=== PATIENT | female | born 1940 | race Native Hawaiian/Other Pacific Islander ===

== ENCOUNTER 2016-09-21 09:28 | Inpatient (IN) | payer OTHER ==
[~2016-09-21 09:28] MED LIST: ALEN70TA19 PO; AMBIEN5 MG PO; AMIT10TA21 PO; ARTIFI TEARS OP; AZEL137S NAS; BIOTIN1000 MCG PO; BUT/APAP/CA1 PO; CALCIUM + D600 MG PO; CHOLESTYRAM4 G1 PO; CYAN10009 IM; D3400 UNI2 PO; DEXTLIQ63 PO; DONE5TAB PO; DULO60CA2 PO; FERROUS SULF325 MG PO; HYDR5TAB9 PO; INSU100I2 SC; LEVO0.0723 PO; LISI10TA11 PO; LYRICA75 MG PO; METO25TA4 PO; MULTTAB52 PO; NEXIUM40 M1 PO; OXYB5TAB56 PO; PLAVIX75 MG PO; RESTASIS0.05 % OP; SIMV40TA57 PO; SINGULAIR10 MG PO; TYLENOL325 MG PO; VITAMIN D400 UNI1 PO; ZANTAC300 MG PO
== END 2016-10-22 08:00 | disposition still patient (30) ==
LOC: PAVB 09:28
PROVIDERS: ADMIT Internal Medicine
DX: Z51.89 Encounter for other specified aftercare (principal)

== ENCOUNTER 2016-10-22 09:00 | Inpatient (IN) | payer OTHER | END 2016-11-22 10:16 | disposition still patient (30) | LOC: PAVB 09:00 | PROVIDERS: ADMIT Internal Medicine | DX: Z51.89 Encounter for other specified aftercare (principal) ==

== ENCOUNTER 2016-10-23 15:07 | Outpatient (CLI) | payer OTHER | END 2016-10-23 19:22 | disposition home or self-care (01) | LOC: RAD 15:07 | DX: R05 Cough (principal) ==

== ENCOUNTER 2016-11-22 10:39 | Inpatient (IN) | payer OTHER | END 2016-12-20 09:45 | disposition still patient (30) | LOC: PAVB 10:39 | PROVIDERS: ADMIT Internal Medicine | DX: Z51.89 Encounter for other specified aftercare (principal) ==

== ENCOUNTER 2016-11-27 04:35 | Outpatient (CLI) | payer OTHER ==
[2016-11-27 06:19] LABS: PLATELET COUNT 287 K/uL (152-353)
[2016-11-27 06:36] LABS: POTASSIUM 3.9 mmol/L (3.6-5.2)
== END 2016-11-27 20:02 | disposition home or self-care (01) ==
LOC: LAB 04:35
PROVIDERS: Internal Medicine
DX: I10 Essential (primary) hypertension (principal); E03.8 Other specified hypothyroidism; E56.8 Deficiency of other vitamins; R73.09 Other abnormal glucose; M81.8 Other osteoporosis without current pathological fracture
CPT/HCPCS: 36415; 80053; 80061; 82306; 82607; 83036; 84443; 85027

== ENCOUNTER 2016-12-20 10:28 | Inpatient (IN) | payer OTHER | END 2017-01-20 08:07 | disposition still patient (30) | LOC: PAVB 10:28 | PROVIDERS: ADMIT Internal Medicine | DX: Z51.89 Encounter for other specified aftercare (principal) ==

== ENCOUNTER 2017-01-20 09:25 | Inpatient (IN) | payer OTHER | END 2017-02-19 09:09 | disposition still patient (30) | LOC: PAVB 09:25 | PROVIDERS: ADMIT Internal Medicine | DX: Z51.89 Encounter for other specified aftercare (principal) ==

== ENCOUNTER 2017-02-07 05:01 | Outpatient (CLI) | payer OTHER | END 2017-02-07 19:02 | disposition home or self-care (01) | LOC: LAB 05:01 | DX: Z16.24 Resistance to multiple antibiotics (principal) | CPT/HCPCS: 87081 ==

== ENCOUNTER 2017-02-19 09:58 | Inpatient (IN) | payer OTHER | END 2017-03-22 09:34 | disposition still patient (30) | LOC: PAVB 09:58 | PROVIDERS: ADMIT Internal Medicine | DX: Z51.89 Encounter for other specified aftercare (principal) ==

== ENCOUNTER 2017-02-21 10:33 | Outpatient (CLI) | payer OTHER | END 2017-02-21 19:13 | disposition home or self-care (01) | LOC: LAB 10:33 | DX: E11.9 Type 2 diabetes mellitus without complications (principal) | CPT/HCPCS: 83036 ==

== ENCOUNTER 2017-03-19 15:47 | Outpatient (CLI) | payer OTHER | END 2017-03-19 19:30 | disposition home or self-care (01) | LOC: RAD 15:47 | DX: R05 Cough (principal); R06.2 Wheezing ==

== ENCOUNTER 2017-03-20 18:40 | Emergency (ER) | payer OTHER ==
[~2017-03-20] VITALS: Ht 152.4 cm; Wt 54.0 kg
[2017-03-20 19:08] LABS: PLATELET COUNT 354 K/uL (152-353)
[2017-03-20 19:17] LABS: POTASSIUM 4.3 mmol/L (3.6-5.2)
[2017-03-20 21:00] VITALS: BP 121/67; TEMP 98.5
== END 2017-03-20 21:05 | disposition home or self-care (01) ==
LOC: ED 18:40
PROC: 0T9B70Z Drainage of Bladder with Drainage Device, Via Natural or Artificial Opening (ICD-10-PCS; principal; 2017-03-20)
DX: T50.991A Poisoning by other drugs, medicaments and biological substances, accidental (unintentional), initial encounter (principal); R53.83 Other fatigue; X58.XXXA Exposure to other specified factors, initial encounter; Y92.128 Other place in nursing home as the place of occurrence of the external cause
CPT/HCPCS: 36415; 51702; 80053; 80307; 81000; 85027; 96360; 96361; 99284; G0479

== ENCOUNTER 2017-03-22 09:58 | Inpatient (IN) | payer OTHER | END 2017-04-21 15:22 | disposition still patient (30) | LOC: PAVB 09:58 | PROVIDERS: ADMIT Internal Medicine | DX: Z51.89 Encounter for other specified aftercare (principal) ==

== ENCOUNTER 2017-03-28 05:06 | Outpatient (CLI) | payer OTHER | END 2017-03-28 06:10 | disposition home or self-care (01) | LOC: LAB 05:06 | DX: Z02.83 Encounter for blood-alcohol and blood-drug test (principal) | CPT/HCPCS: 80307; G0479 ==

== ENCOUNTER 2017-04-21 15:39 | Inpatient (IN) | payer OTHER | END 2017-05-22 09:43 | disposition still patient (30) | LOC: PAVB 15:39 | PROVIDERS: ADMIT Internal Medicine | DX: Z51.89 Encounter for other specified aftercare (principal) ==

== ENCOUNTER 2017-05-10 07:15 | Day surgery (SDC) | payer OTHER | END 2017-05-10 09:35 | LOC: OR 07:15 | PROC: 0DB68ZZ Excision of Stomach, Via Natural or Artificial Opening Endoscopic (ICD-10-PCS; principal; 2017-05-10) | PROC: 0D738ZZ Dilation of Lower Esophagus, Via Natural or Artificial Opening Endoscopic (ICD-10-PCS; 2017-05-10) | DX: K22.2 Esophageal obstruction (principal); R13.19 Other dysphagia; K44.9 Diaphragmatic hernia without obstruction or gangrene; K20.8 Other esophagitis | CPT/HCPCS: J3010 ==

== ENCOUNTER 2017-05-22 10:33 | Inpatient (IN) | payer OTHER | END 2017-06-22 08:41 | disposition still patient (30) | LOC: PAVB 10:33 | PROVIDERS: ADMIT Internal Medicine | DX: Z51.89 Encounter for other specified aftercare (principal) ==

== ENCOUNTER 2017-05-23 06:30 | Outpatient (CLI) | payer OTHER ==
[2017-05-23 07:01] LABS: PLATELET COUNT 304 K/uL (152-353)
[2017-05-23 07:23] LABS: POTASSIUM 4.5 mmol/L (3.6-5.2)
== END 2017-05-23 19:40 | disposition home or self-care (01) ==
LOC: LAB 06:30
PROVIDERS: Internal Medicine
DX: I10 Essential (primary) hypertension (principal); E03.8 Other specified hypothyroidism; D51.8 Other vitamin B12 deficiency anemias; E55.9 Vitamin D deficiency, unspecified; R73.9 Hyperglycemia, unspecified; R73.09 Other abnormal glucose
CPT/HCPCS: 36415; 80053; 80061; 82306; 82607; 83036; 84443; 85027

== ENCOUNTER 2017-06-22 09:11 | Inpatient (IN) | payer OTHER | END 2017-07-22 10:39 | disposition still patient (30) | LOC: PAVB 09:11 | PROVIDERS: ADMIT Internal Medicine | DX: Z51.89 Encounter for other specified aftercare (principal) ==

== ENCOUNTER 2017-07-22 10:42 | Inpatient (IN) | payer OTHER | END 2017-08-22 12:56 | disposition still patient (30) | LOC: PAVB 10:42 | PROVIDERS: ADMIT Internal Medicine ==

== ENCOUNTER 2017-07-31 10:17 | Day surgery (SDC) | payer OTHER | END 2017-07-31 13:40 | LOC: OR 10:17 | PROC: 0DB38ZZ Excision of Lower Esophagus, Via Natural or Artificial Opening Endoscopic (ICD-10-PCS; principal; 2017-07-31) | PROC: 0D738ZZ Dilation of Lower Esophagus, Via Natural or Artificial Opening Endoscopic (ICD-10-PCS; 2017-07-31) | DX: R13.19 Other dysphagia (principal); K22.2 Esophageal obstruction; K44.9 Diaphragmatic hernia without obstruction or gangrene; K29.60 Other gastritis without bleeding | CPT/HCPCS: J2001; J2704; J3010 ==

== ENCOUNTER 2017-08-22 13:40 | Inpatient (IN) | payer OTHER | END 2017-09-21 09:20 | disposition still patient (30) | LOC: PAVB 13:40 | PROVIDERS: ADMIT Internal Medicine ==

== ENCOUNTER 2017-08-27 07:58 | Outpatient (CLI) | payer OTHER | END 2017-08-27 09:00 | disposition home or self-care (01) | LOC: LAB 07:58 | DX: E11.9 Type 2 diabetes mellitus without complications (principal) | CPT/HCPCS: 36415; 83036 ==

== ENCOUNTER 2017-09-21 09:40 | Inpatient (IN) | payer OTHER | END 2017-10-22 09:30 | disposition still patient (30) | LOC: PAVB 09:40 | PROVIDERS: ADMIT Internal Medicine ==

== ENCOUNTER 2017-10-22 10:01 | Inpatient (IN) | payer OTHER | END 2017-11-22 09:49 | disposition still patient (30) | LOC: PAVB 10:01 | PROVIDERS: ADMIT Internal Medicine ==

== ENCOUNTER 2017-11-22 10:36 | Inpatient (IN) | payer OTHER | END 2017-12-20 09:19 | disposition still patient (30) | LOC: PAVB 10:36 | PROVIDERS: ADMIT Internal Medicine | DX: R26.9 Unspecified abnormalities of gait and mobility (principal); N39.0 Urinary tract infection, site not specified; A04.72 Enterocolitis due to Clostridium difficile, not specified as recurrent; N15.9 Renal tubulo-interstitial disease, unspecified; Z91.81 History of falling; D50.9 Iron deficiency anemia, unspecified; N32.81 Overactive bladder; D51.1 Vitamin B12 deficiency anemia due to selective vitamin B12 malabsorption with proteinuria; J44.9 Chronic obstructive pulmonary disease, unspecified | CPT/HCPCS: 87324; 87449 ==

== ENCOUNTER 2017-11-27 05:37 | Outpatient (CLI) | payer OTHER ==
[2017-11-27 06:30] LABS: PLATELET COUNT 412 K/uL (152-353)
[2017-11-27 06:52] LABS: POTASSIUM 4.4 mmol/L (3.6-5.2)
[2017-11-28 19:00] VITALS: BP 85/56; TEMP 99
[2017-11-28 21:00] VITALS: BP 82/68
[2017-11-28 22:00] VITALS: BP 84/68
[2017-11-28 23:00] VITALS: BP 97/60
[2017-11-29] VITALS: BP 74/48; TEMP 99.9
[2017-11-29 01:00] VITALS: BP 89/73
[2017-11-29 02:00] VITALS: BP 93/67
[2017-11-29 04:00] VITALS: BP 73/56; TEMP 98.8
[2017-11-29 05:00] VITALS: BP 66/49
== END 2017-11-27 20:03 | disposition home or self-care (01) ==
LOC: LAB 05:37 → ICU 11-28 19:15 → MED/SURG 11-28 19:15 → ICU 11-28 19:15
PROVIDERS: Internal Medicine
DX: I10 Essential (primary) hypertension (principal); E03.8 Other specified hypothyroidism; D51.8 Other vitamin B12 deficiency anemias; J44.9 Chronic obstructive pulmonary disease, unspecified; R79.89 Other specified abnormal findings of blood chemistry; R19.5 Other fecal abnormalities
CPT/HCPCS: 80053; 80061; 82272; 82306; 82607; 83036; 84443; 85027; 87015; 87045; 87205; 87324; 87328; 87329; 87449; 87899; 94760

== ENCOUNTER 2017-11-27 20:47 | Inpatient (IN) | payer OTHER ==
[~2017-11-27] VITALS: Ht 157.5 cm; Wt 55.8 kg
[2017-11-27 20:48] VITALS: BP 71/43; TEMP 97.7
[2017-11-27 21:20] LABS: PLATELET COUNT 366 K/uL (152-353)
[2017-11-27 21:33] LABS: POTASSIUM 4.5 mmol/L (3.6-5.2)
[2017-11-28 00:56] VITALS: BP 86/43; TEMP 98.3; Ht 157.5 cm; Wt 55.8 kg
[2017-11-28 04:00] VITALS: BP 98/52; TEMP 99.1
[2017-11-28 06:44] LABS: POTASSIUM 4.5 mmol/L (3.6-5.2)
[2017-11-28 08:00] VITALS: BP 87/45; TEMP 98.8
[2017-11-28 12:00] VITALS: BP 80/51; TEMP 97.9
[2017-11-28 16:00] VITALS: BP 96/44; TEMP 100.4
[2017-11-29] VITALS (16 sets, daily range): BP systolic 60–98; BP diastolic 36–62; TEMP 98–98.8
[2017-11-29 11:14] LABS: PLATELET COUNT 299 K/uL (152-353)
[2017-11-29 11:26] LABS: POTASSIUM 4.7 mmol/L (3.6-5.2)
[2017-11-30] VITALS (22 sets, daily range): BP systolic 83–114; BP diastolic 43–66; TEMP 97.4–98.8
[2017-11-30 06:12] LABS: PLATELET COUNT 292 K/uL (152-353)
[2017-11-30 06:22] LABS: POTASSIUM 4.6 mmol/L (3.6-5.2)
[2017-12-01] VITALS (21 sets, daily range): BP systolic 99–139; BP diastolic 50–85; TEMP 97.4–98.5
[2017-12-01 06:34] LABS: PLATELET COUNT 329 K/uL (152-353)
[2017-12-01 06:47] LABS: POTASSIUM 4.8 mmol/L (3.6-5.2)
[2017-12-02] VITALS (17 sets, daily range): BP systolic 125–160; BP diastolic 60–86; TEMP 97.4–98.9
[2017-12-02 09:37] LABS: PLATELET COUNT 354 K/uL (152-353)
[2017-12-03] VITALS: BP 125/64; TEMP 98.5
[2017-12-03 04:00] VITALS: BP 144/74; TEMP 98.5
[2017-12-03 08:00] VITALS: BP 142/65; TEMP 97.5
[2017-12-03 12:00] VITALS: BP 165/78; TEMP 97.8
[2017-12-03 16:00] VITALS: BP 141/60; TEMP 97.8
[2017-12-03 20:00] VITALS: BP 157/76; TEMP 98.9
[2017-12-04] VITALS: BP 139/68; TEMP 98.5
[2017-12-04 04:00] VITALS: BP 144/68; TEMP 98
[2017-12-04 08:13] VITALS: BP 151/64; TEMP 98.1
[2017-12-04 12:00] VITALS: BP 129/70; TEMP 98.4
== END 2017-12-04 14:35 | DRG 871 ==
LOC: ED 20:47 → ICU 23:07 → MED/SURG 23:48 → ICU 11-28 19:15 → MED/SURG 11-28 23:49
PROVIDERS: Internal Medicine
DX: A41.89 Other specified sepsis (principal); J96.00 Acute respiratory failure, unspecified whether with hypoxia or hypercapnia; N39.0 Urinary tract infection, site not specified; A04.72 Enterocolitis due to Clostridium difficile, not specified as recurrent; I95.89 Other hypotension; R41.82 Altered mental status, unspecified; B96.20 Unspecified Escherichia coli [E. coli] as the cause of diseases classified elsewhere; G30.8 Other Alzheimer's disease; F02.80 Dementia in other diseases classified elsewhere, unspecified severity, without behavioral disturbance, psychotic disturbance, mood disturbance, and anxiety; J44.9 Chronic obstructive pulmonary disease, unspecified; E03.8 Other specified hypothyroidism; E11.9 Type 2 diabetes mellitus without complications; K21.9 Gastro-esophageal reflux disease without esophagitis; N32.81 Overactive bladder; I10 Essential (primary) hypertension; D51.8 Other vitamin B12 deficiency anemias; R79.89 Other specified abnormal findings of blood chemistry; R19.5 Other fecal abnormalities
CPT/HCPCS: 36415; 74022; 80048; 80053; 80061; 80202; 81000; 82272; 82306; 82607; 82947; 82948; 82962; 83036; 83605; 83880; 84443; 85027; 87015; 87040; 87045; 87077; 87086; 87088; 87185; 87186; 87205; 87324; 87328; 87329; 87449; 87899; 93005; 94640; 94664; 94760; 96361; 96365; 96366; 96367; 96372; 99285; J1650; J1885; J1940; J2270; J3411; J3490; J7060

== ENCOUNTER 2017-12-20 09:54 | Inpatient (IN) | payer OTHER | END 2018-01-20 08:00 | disposition still patient (30) | LOC: PAVB 09:54 | PROVIDERS: ADMIT Internal Medicine | DX: N39.0 Urinary tract infection, site not specified (principal); R26.9 Unspecified abnormalities of gait and mobility; N15.9 Renal tubulo-interstitial disease, unspecified; R53.1 Weakness; Z91.81 History of falling; D50.9 Iron deficiency anemia, unspecified; N32.81 Overactive bladder; D51.1 Vitamin B12 deficiency anemia due to selective vitamin B12 malabsorption with proteinuria; J44.9 Chronic obstructive pulmonary disease, unspecified; M81.0 Age-related osteoporosis without current pathological fracture | CPT/HCPCS: 36415; 84443 ==

== ENCOUNTER 2018-01-12 16:08 | Outpatient (CLI) | payer OTHER | END 2018-01-12 19:33 | disposition home or self-care (01) | LOC: RAD 16:08 | DX: M25.552 Pain in left hip (principal) ==

== ENCOUNTER 2018-01-20 09:00 | Inpatient (IN) | payer OTHER | END 2018-02-19 09:04 | disposition still patient (30) | LOC: PAVB 09:00 | PROVIDERS: ADMIT Internal Medicine ==

== ENCOUNTER 2018-02-19 09:31 | Inpatient (IN) | payer OTHER | END 2018-03-22 08:52 | disposition still patient (30) | LOC: PAVB 09:31 | PROVIDERS: ADMIT Internal Medicine ==

== ENCOUNTER 2018-02-20 10:32 | Outpatient (CLI) | payer OTHER ==
[2018-02-20 12:02] LABS: POTASSIUM 4.8 mmol/L (3.6-5.2)
== END 2018-02-20 21:39 | disposition home or self-care (01) ==
LOC: LAB 10:32
PROVIDERS: Internal Medicine
DX: E11.9 Type 2 diabetes mellitus without complications (principal); I10 Essential (primary) hypertension; E03.8 Other specified hypothyroidism
CPT/HCPCS: 80053; 83036; 84443

== ENCOUNTER 2018-03-06 17:55 | Outpatient (CLI) | payer OTHER | END 2018-03-06 20:00 | disposition home or self-care (01) | LOC: LAB 17:55 | DX: R30.0 Dysuria (principal); R35.8 Other polyuria | CPT/HCPCS: 81000; 87077; 87086; 87088; 87186 ==

== ENCOUNTER 2018-03-22 09:17 | Inpatient (IN) | payer OTHER | END 2018-04-21 14:19 | disposition still patient (30) | LOC: PAVB 09:17 | PROVIDERS: ADMIT Internal Medicine ==

== ENCOUNTER 2018-04-21 14:49 | Inpatient (IN) | payer OTHER | END 2018-05-22 08:00 | disposition still patient (30) | LOC: PAVB 14:49 | PROVIDERS: ADMIT Internal Medicine ==

== ENCOUNTER 2018-04-25 08:19 | Outpatient (CLI) | payer OTHER | END 2018-04-25 19:31 | disposition home or self-care (01) | LOC: LAB 08:19 | DX: E03.8 Other specified hypothyroidism (principal) | CPT/HCPCS: 84443 ==

== ENCOUNTER 2018-05-22 09:00 | Inpatient (IN) | payer OTHER | END 2018-06-22 10:18 | disposition still patient (30) | LOC: PAVB 09:00 | PROVIDERS: ADMIT Internal Medicine ==

== ENCOUNTER 2018-05-28 10:44 | Outpatient (CLI) | payer OTHER ==
[2018-05-28 11:03] LABS: PLATELET COUNT 273 K/uL (152-353)
[2018-05-28 11:33] LABS: POTASSIUM 5.4 mmol/L (3.6-5.2)
== END 2018-05-28 19:51 | disposition home or self-care (01) ==
LOC: LAB 10:44
PROVIDERS: Internal Medicine
DX: D72.829 Elevated white blood cell count, unspecified (principal); E11.9 Type 2 diabetes mellitus without complications; I10 Essential (primary) hypertension; Z79.899 Other long term (current) drug therapy; E55.9 Vitamin D deficiency, unspecified; E53.8 Deficiency of other specified B group vitamins
CPT/HCPCS: 36415; 80053; 81000; 82306; 82607; 83036; 84443; 85027; 87077; 87086; 87088; 87186

== ENCOUNTER 2018-06-05 05:24 | Outpatient (CLI) | payer OTHER | END 2018-06-05 23:59 | disposition home or self-care (01) | LOC: LAB 05:24 | DX: E11.9 Type 2 diabetes mellitus without complications (principal) | CPT/HCPCS: 82947 ==

== ENCOUNTER 2018-06-22 10:58 | Inpatient (IN) | payer OTHER | END 2018-07-22 09:20 | disposition still patient (30) | LOC: PAVB 10:58 | PROVIDERS: ADMIT Internal Medicine ==

== ENCOUNTER 2018-06-27 07:49 | Outpatient (CLI) | payer OTHER | END 2018-06-27 23:17 | disposition home or self-care (01) | LOC: LAB 07:49 | DX: E03.9 Hypothyroidism, unspecified (principal) | CPT/HCPCS: 36415; 84443 ==

== ENCOUNTER 2018-07-04 10:20 | Outpatient (CLI) | payer OTHER ==
[2018-07-04 10:56] LABS: PLATELET COUNT 339 K/uL (152-353)
[2018-07-04 10:59] LABS: POTASSIUM 5.2 mmol/L (3.6-5.2)
== END 2018-07-04 19:44 | disposition home or self-care (01) ==
LOC: LAB 10:20
PROVIDERS: Internal Medicine
DX: M62.830 Muscle spasm of back (principal); N18.9 Chronic kidney disease, unspecified; E87.5 Hyperkalemia; R82.99 Other abnormal findings in urine
CPT/HCPCS: 80048; 81000; 85027; 87077; 87086; 87088; 87186

== ENCOUNTER 2018-07-22 10:08 | Inpatient (IN) | payer OTHER | END 2018-08-22 08:47 | disposition still patient (30) | LOC: PAVB 10:08 | PROVIDERS: ADMIT Internal Medicine | CPT/HCPCS: J2001; J2704 ==

== ENCOUNTER 2018-08-06 07:24 | Day surgery (SDC) | payer OTHER ==
[2018-08-06 08:13] LABS: PLATELET COUNT 314 K/uL (152-353)
[2018-08-06 08:25] LABS: POTASSIUM 4.8 mmol/L (3.6-5.2)
== END 2018-08-06 09:55 ==
LOC: OR 07:24
PROVIDERS: Internal Medicine
PROC: 0DB68ZX Excision of Stomach, Via Natural or Artificial Opening Endoscopic, Diagnostic (ICD-10-PCS; principal; 2018-08-06)
PROC: 0D758ZZ Dilation of Esophagus, Via Natural or Artificial Opening Endoscopic (ICD-10-PCS; 2018-08-06)
PROC: 0DB58ZZ Excision of Esophagus, Via Natural or Artificial Opening Endoscopic (ICD-10-PCS; 2018-08-06)
DX: R13.19 Other dysphagia (principal); K22.2 Esophageal obstruction; K29.50 Unspecified chronic gastritis without bleeding; K20.8 Other esophagitis; K44.9 Diaphragmatic hernia without obstruction or gangrene; K22.10 Ulcer of esophagus without bleeding
CPT/HCPCS: 80053; 85027

== ENCOUNTER 2018-08-22 06:25 | Outpatient (CLI) | payer OTHER | END 2018-08-22 21:49 | disposition home or self-care (01) | LOC: LAB 06:25 | DX: E11.9 Type 2 diabetes mellitus without complications (principal) | CPT/HCPCS: 36415; 83036 ==

== ENCOUNTER 2018-08-22 09:48 | Inpatient (IN) | payer OTHER | END 2018-09-21 08:32 | disposition still patient (30) | LOC: PAVB 09:48 | PROVIDERS: ADMIT Internal Medicine ==

== ENCOUNTER 2018-09-06 03:41 | Outpatient (CLI) | payer OTHER | END 2018-09-06 19:11 | disposition home or self-care (01) | LOC: LAB 03:41 | DX: D50.8 Other iron deficiency anemias (principal) | CPT/HCPCS: 83540 ==

== ENCOUNTER 2018-09-06 15:38 | Outpatient (CLI) | payer OTHER | END 2018-09-06 19:20 | disposition home or self-care (01) | LOC: RAD 15:38 | DX: M85.88 Other specified disorders of bone density and structure, other site (principal) ==

== ENCOUNTER 2018-09-10 09:32 | Outpatient (CLI) | payer OTHER | END 2018-09-10 22:23 | disposition home or self-care (01) | LOC: RAD 09:32 | DX: R05 Cough (principal) ==

== ENCOUNTER 2018-09-21 09:13 | Inpatient (IN) | payer OTHER | END 2018-10-22 11:05 | disposition still patient (30) | LOC: PAVB 09:13 | PROVIDERS: ADMIT Internal Medicine ==

== ENCOUNTER 2018-10-22 11:22 | Inpatient (IN) | payer OTHER | END 2018-11-22 10:54 | disposition still patient (30) | LOC: PAVB 11:22 | PROVIDERS: ADMIT Internal Medicine ==

== ENCOUNTER 2018-11-05 13:33 | Outpatient (CLI) | payer OTHER | END 2018-11-05 23:33 | disposition home or self-care (01) | LOC: RAD 13:33 | DX: M25.512 Pain in left shoulder (principal) ==

== ENCOUNTER 2018-11-22 11:12 | Inpatient (IN) | payer OTHER | END 2018-12-20 10:18 | disposition still patient (30) | LOC: PAVB 11:12 | PROVIDERS: ADMIT Internal Medicine ==

== ENCOUNTER 2018-11-25 06:20 | Outpatient (CLI) | payer OTHER ==
[2018-11-25 07:57] LABS: PLATELET COUNT 280 K/uL (152-353)
[2018-11-25 08:33] LABS: POTASSIUM 4.7 mmol/L (3.6-5.2)
== END 2018-11-25 20:44 | disposition home or self-care (01) ==
LOC: LAB 06:20
PROVIDERS: Internal Medicine
DX: I10 Essential (primary) hypertension (principal); E11.9 Type 2 diabetes mellitus without complications
CPT/HCPCS: 36415; 80053; 80061; 82306; 82607; 83036; 84443; 85027

== ENCOUNTER 2018-11-28 16:32 | Outpatient (CLI) | payer OTHER | END 2018-11-28 22:41 | disposition home or self-care (01) | LOC: RAD 16:32 | DX: M54.5 Low back pain (principal) ==

== ENCOUNTER 2018-12-20 11:02 | Inpatient (IN) | payer OTHER | END 2019-01-20 10:39 | disposition still patient (30) | LOC: PAVB 11:02 | PROVIDERS: ADMIT Internal Medicine ==

== ENCOUNTER 2019-01-20 11:17 | Inpatient (IN) | payer OTHER | END 2019-02-19 11:16 | disposition still patient (30) | LOC: PAVB 11:17 | PROVIDERS: ADMIT Internal Medicine ==

== ENCOUNTER 2019-02-19 04:39 | Outpatient (CLI) | payer OTHER | END 2019-02-19 23:15 | disposition home or self-care (01) | LOC: LAB 04:39 | DX: E11.9 Type 2 diabetes mellitus without complications (principal) | CPT/HCPCS: 36415; 83036; 83540 ==

== ENCOUNTER 2019-02-19 12:20 | Inpatient (IN) | payer OTHER | END 2019-03-22 08:38 | disposition still patient (30) | LOC: PAVB 12:20 | PROVIDERS: ADMIT Internal Medicine | DX: Z51.89 Encounter for other specified aftercare (principal) ==

== ENCOUNTER 2019-02-27 09:14 | Day surgery (SDC) | payer OTHER ==
[~2019-02-27] VITALS: Ht 30.5 cm; Wt 0.5 kg
== END 2019-02-27 11:20 ==
LOC: OR 09:14
PROC: 0DB48ZZ Excision of Esophagogastric Junction, Via Natural or Artificial Opening Endoscopic (ICD-10-PCS; principal; 2019-02-27)
PROC: 0DB68ZZ Excision of Stomach, Via Natural or Artificial Opening Endoscopic (ICD-10-PCS; 2019-02-27)
PROC: 0D758ZZ Dilation of Esophagus, Via Natural or Artificial Opening Endoscopic (ICD-10-PCS; 2019-02-27)
DX: R13.19 Other dysphagia (principal); K22.2 Esophageal obstruction; K31.9 Disease of stomach and duodenum, unspecified; K22.9 Disease of esophagus, unspecified; K44.9 Diaphragmatic hernia without obstruction or gangrene; K20.8 Other esophagitis; K29.50 Unspecified chronic gastritis without bleeding; K25.3 Acute gastric ulcer without hemorrhage or perforation; D13.1 Benign neoplasm of stomach
CPT/HCPCS: J2001; J2405; J2704

== ENCOUNTER 2019-03-22 09:18 | Inpatient (IN) | payer OTHER ==
[2019-04-13] MEDS ORDERED: LISI20TA11 PO (15:38)
[2019-04-13] MEDS ORDERED: LYRICA150 MG PO (15:42)
[2019-04-13] MEDS ORDERED: LORADAMED10 MG PO (15:42)
[2019-04-13] MEDS ORDERED: MECLIZINE 2525 MG PO (15:43)
[2019-04-13] MEDS ORDERED: MELATONIN10 M2 PO (15:44)
[2019-04-13] MEDS ORDERED: REMERON SOLTAB15 MG PO (15:45)
[2019-04-13] MEDS ORDERED: CLOP75TA2 PO (15:48)
[2019-04-13] MEDS ORDERED: DULO60CA2 PO (15:51)
[2019-04-13] MEDS ORDERED: LANTUS100 UNIT/M SC (15:52)
[2019-04-13] MEDS ORDERED: EUTHYROX100 MCG PO (15:54)
[2019-04-13] MEDS ORDERED: OMEP40CA PO (15:54)
[2019-04-13] MEDS ORDERED: TOPAMAX50 MG PO (15:55)
[2019-04-13] MEDS ORDERED: VITAMIN D2000 UNI3 PO (15:56)
[2019-04-13] MEDS ORDERED: TRAMADOL HYDROC50 MG PO (15:57)
[2019-04-13] MEDS ORDERED: MECLIZINE25 MG PO (15:58)
[2019-04-13] MEDS ORDERED: CLON0.1T16 PO (15:59)
[2019-04-30] MEDS ORDERED: OXYB5TAB56 PO (15:28)
== END 2019-04-21 09:37 | disposition still patient (30) ==
LOC: PAVB 09:18
PROVIDERS: ADMIT Internal Medicine

== ENCOUNTER 2019-03-28 08:26 | Outpatient (CLI) | payer OTHER | END 2019-03-28 21:35 | disposition home or self-care (01) | LOC: LAB 08:26 | DX: R53.83 Other fatigue (principal) | CPT/HCPCS: 81000; 87077; 87086; 87088; 87186 ==

== ENCOUNTER 2019-04-10 07:26 | Outpatient (CLI) | payer OTHER | END 2019-04-10 23:04 | disposition home or self-care (01) | LOC: LAB 07:26 | DX: N39.0 Urinary tract infection, site not specified (principal) | CPT/HCPCS: 81000; 87077; 87086; 87088; 87186 ==

== ENCOUNTER 2019-04-13 06:35 | Inpatient (IN) | payer OTHER ==
[~2019-04-13] VITALS: Ht 157.5 cm; Wt 57.0 kg
[2019-04-13] VITALS (7 sets, daily range): BP systolic 84–121; BP diastolic 40–56; TEMP 97.9–98.1; Ht 157.5 cm; Wt 57.0 kg
[2019-04-13 09:54] LABS: PLATELET COUNT 341 K/uL (152-353)
[2019-04-13 10:08] LABS: POTASSIUM 6.6 mmol/L (3.6-5.2)
[2019-04-13] MEDS ORDERED: LISI20TA11 PO (15:38)
[2019-04-13] MEDS ORDERED: LYRICA150 MG PO (15:42)
[2019-04-13] MEDS ORDERED: LORADAMED10 MG PO (15:42)
[2019-04-13] MEDS ORDERED: MECLIZINE 2525 MG PO (15:43)
[2019-04-13] MEDS ORDERED: MELATONIN10 M2 PO (15:44)
[2019-04-13] MEDS ORDERED: REMERON SOLTAB15 MG PO (15:45)
[2019-04-13] MEDS ORDERED: CLOP75TA2 PO (15:48)
[2019-04-13] MEDS ORDERED: DULO60CA2 PO (15:51)
[2019-04-13] MEDS ORDERED: LANTUS100 UNIT/M SC (15:52)
[2019-04-13] MEDS ORDERED: OMEP40CA PO (15:54)
[2019-04-13] MEDS ORDERED: EUTHYROX100 MCG PO (15:54)
[2019-04-13] MEDS ORDERED: TOPAMAX50 MG PO (15:55)
[2019-04-13] MEDS ORDERED: VITAMIN D2000 UNI3 PO (15:56)
[2019-04-13] MEDS ORDERED: TRAMADOL HYDROC50 MG PO (15:57)
[2019-04-13] MEDS ORDERED: MECLIZINE25 MG PO (15:58)
[2019-04-13] MEDS ORDERED: CLON0.1T16 PO (15:59)
[2019-04-14] VITALS (8 sets, daily range): BP systolic 95–118; BP diastolic 41–60; TEMP 97.4–99.3
[2019-04-14 05:09] LABS: PLATELET COUNT 257 K/uL (152-353)
[2019-04-14 06:19] LABS: POTASSIUM 6.6 mmol/L (3.6-5.2)
[2019-04-15 04:00] VITALS: BP 108/56; TEMP 98
[2019-04-15 05:16] LABS: PLATELET COUNT 239 K/uL (152-353)
[2019-04-15 05:45] LABS: POTASSIUM 5.4 mmol/L (3.6-5.2)
[2019-04-15 08:00] VITALS: BP 148/74; TEMP 99.1
[2019-04-15 12:00] VITALS: BP 140/65; TEMP 98.3
[2019-04-15 13:00] VITALS: BP 124/59
[2019-04-15 16:00] VITALS: BP 114/57; TEMP 98.4
[2019-04-15 20:00] VITALS: BP 118/65; TEMP 98.2
[2019-04-16] VITALS: BP 107/58; TEMP 98
[2019-04-16 04:00] VITALS: BP 121/64; TEMP 98.4
[2019-04-16 08:00] VITALS: BP 125/67; TEMP 97.9
== END 2019-04-16 10:15 | DRG 872 ==
LOC: MED/SURG 06:35
PROVIDERS: ADMIT Internal Medicine
DX: A41.89 Other specified sepsis (principal); N39.0 Urinary tract infection, site not specified; I12.0 Hypertensive chronic kidney disease with stage 5 chronic kidney disease or end stage renal disease; N18.5 Chronic kidney disease, stage 5; I95.89 Other hypotension; E86.9 Volume depletion, unspecified; E87.8 Other disorders of electrolyte and fluid balance, not elsewhere classified; G30.8 Other Alzheimer's disease; F02.80 Dementia in other diseases classified elsewhere, unspecified severity, without behavioral disturbance, psychotic disturbance, mood disturbance, and anxiety; E11.22 Type 2 diabetes mellitus with diabetic chronic kidney disease; R09.02 Hypoxemia; J44.9 Chronic obstructive pulmonary disease, unspecified
CPT/HCPCS: 36415; 80053; 80307; 81000; 83605; 85027; 87040; J2185; J7060

== ENCOUNTER 2019-04-23 15:45 | Inpatient (IN) | payer OTHER ==
[~2019-04-23] VITALS: Ht 157.5 cm; Wt 54.1 kg
[2019-04-23] VITALS (22 sets, daily range): BP systolic 72–98; BP diastolic 32–48; TEMP 98; Ht 157.5 cm; Wt 54.1 kg
[~2019-04-23 15:45] MED LIST changes: +CLON0.1T16 PO; +CLOP75TA2 PO; +EUTHYROX100 MCG PO; +LANTUS100 UNIT/M SC; +LISI20TA11 PO; +LORADAMED10 MG PO; +LYRICA150 MG PO; +MECLIZINE 2525 MG PO; +MECLIZINE25 MG PO; +MELATONIN10 M2 PO; +OMEP40CA PO; +REMERON SOLTAB15 MG PO; +TOPAMAX50 MG PO; +TRAMADOL HYDROC50 MG PO; +VITAMIN D2000 UNI3 PO
[2019-04-24] VITALS (23 sets, daily range): BP systolic 74–102; BP diastolic 32–54; TEMP 97.5–98
[2019-04-24 05:16] LABS: PLATELET COUNT 309 K/uL (152-353)
[2019-04-24 08:14] LABS: POTASSIUM 4.9 mmol/L (3.6-5.2)
== END 2019-04-24 15:16 | disposition short-term general hospital (02) | DRG 683 ==
LOC: ICU 15:45
PROVIDERS: ADMIT Internal Medicine
DX: I12.0 Hypertensive chronic kidney disease with stage 5 chronic kidney disease or end stage renal disease (principal); N18.5 Chronic kidney disease, stage 5; N17.8 Other acute kidney failure; E11.22 Type 2 diabetes mellitus with diabetic chronic kidney disease; I95.89 Other hypotension; R41.82 Altered mental status, unspecified; J44.9 Chronic obstructive pulmonary disease, unspecified; G30.8 Other Alzheimer's disease; F02.80 Dementia in other diseases classified elsewhere, unspecified severity, without behavioral disturbance, psychotic disturbance, mood disturbance, and anxiety; D72.828 Other elevated white blood cell count; M81.8 Other osteoporosis without current pathological fracture
CPT/HCPCS: 80053; 82550; 82553; 83605; 84484; 85027; 87040; 93005; J1265; J1940; J2185; J3370; J3490